=== PATIENT | female | born 1995 | race Caucasian/White ===

== ENCOUNTER 2017-07-27 12:33 | Emergency (ER) | payer OTHER ==
[2017-07-27 12:54] VITALS: BP 105/69
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
--- NOTE | 2017-07-27 14:12 | RAD ---
INDICATION: Left orbit injury. COMPARISON: There are no prior studies available for comparison. TECHNIQUE: Contiguous axial sections of the axial images of the facial bones were obtained and reconstructed in the coronal and sagittal planes. FINDINGS: Soft tissue swelling is noted anterior to the left orbit and maxilla. The casas of the orbits and maxillary sinuses appear intact. The zygomatic arches appear intact. The nasal bones appear intact. There is moderate deviation of the nasal septum toward the left side. The pterygoid plates appear intact. The paranasal sinuses appear clear. IMPRESSION: NO EVIDENCE OF FRACTURE.
== END 2017-07-27 14:37 | disposition home or self-care (01) ==
LOC: UCCORT 12:33
DX: S00.12XA Contusion of left eyelid and periocular area, initial encounter (principal); V78.1XXA Passenger on bus injured in noncollision transport accident in nontraffic accident, initial encounter; Y92.9 Unspecified place or not applicable
CPT/HCPCS: 70486; 84702; 99201; G0463

== ENCOUNTER 2017-08-14 19:52 | Emergency (ER) | payer BC, OTHER ==
[2017-08-14 20:12] VITALS: BP 104/67
--- NOTE | 2017-08-14 20:15 | UC ---
Respiratory Complaint HPI - HPI Summary HPI Summary: 22 yo female with cough x 2 weeks productive no f/c no sob a little low energy no sinus symptoms - History of Current Complaint Chief Complaint: UCGeneralIllness Stated Complaint: COUGH Time Seen by Provider: 08/14/17 20:11 Hx Obtained From: Patient Hx Last Menstrual Period: APPROX 2 WKS AGO Onset/Duration: Gradual Onset, Lasting Weeks Timing: Constant Severity Initially: Mild Severity Currently: Moderate Pain Intensity: 4 Pain Scale Used: 0-10 Numeric Character: Cough: Productive Associated Signs And Symptoms: Positive: Pleuritic Chest Pain - right side - Allergies/Home Medications Allergies/Adverse Reactions: Allergies Allergy/AdvReac Type Severity Reaction Status Date / Time No Known Allergies Allergy Verified 08/14/17 20:04 Home Medications: Home Medications Acetaminophen TAB* [Tylenol TAB*] 4 tab PO Q4H PRN 08/14/17 [History Confirmed 08/14/17] Dextromethorphan-Phenylephrine [Daytime Cold & Flu Relief 10-5-325 mg] 2 cap PO DAILY PRN 08/14/17 [History Confirmed 08/14/17] Levonorgestrel (Iud) [Mirena IUD] 20 mcg IU SEE INSTRUCTIONS 08/14/17 [History Confirmed 08/14/17] PMH/Surg Hx/FS Hx/Imm Hx Previously Healthy: Yes - Surgical History Surgical History: None - Family History Known Family History: Negative: Cardiac Disease, Hypertension, Diabetes - Social History Alcohol Use: Occasionally Substance Use Type: None Smoking Status (MU): Never Smoked Tobacco Review of Systems Constitutional: Negative Skin: Negative Eyes: Negative ENT: Negative Respiratory: Negative Cardiovascular: Chest Pain Gastrointestinal: Negative Genitourinary: Negative Motor: Negative Neurovascular: Negative Musculoskeletal: Negative Neurological: Negative Psychological: Negative Is Patient Immunocompromised?: No All Other Systems Reviewed And Are Negative: Yes Physical Exam Triage Information Reviewed: Yes Appearance: Well-Appearing, No Pain Distress, Well-Nourished Vital Signs: Initial Vital Signs Temp 98.1 F 08/14/17 19:58 Pulse 99 08/14/17 19:58 Resp 18 08/14/17 19:58 BP 104/67 08/14/17 19:58 Pulse Ox 100 08/14/17 19:58 Vital Signs Reviewed: Yes Eyes: Positive: Conjunctiva Clear ENT: Positive: Hearing grossly normal, TMs normal. Negative: Nasal congestion, Nasal drainage, Tonsillar swelling, Tonsillar exudate, Trismus, Muffled/hoarse voice Neck: Positive: Supple, Nontender, No Lymphadenopathy Respiratory: Positive: Chest non-tender, No respiratory distress, No accessory muscle use, Crackles - RLL. Negative: Lungs clear Cardiovascular: Positive: RRR, No Murmur Musculoskeletal: Positive: ROM Intact, No Edema Neurological: Positive: Alert Psychological Exam: Normal Skin Exam: Normal UC Diagnostic Evaluation - Laboratory O2 Sat by Pulse Oximetry: 100 - normal/not hypoxic - Radiology Xray Interpretation: No Acute Changes Radiology Interpretation Completed By: Radiologist Respiratory Course/Dx - Differential Dx/Diagnosis Provider Diagnoses: acute bronchitis Discharge - Discharge Plan Condition: Stable Disposition: HOME Patient Education Materials: Acute Bronchitis (ED)
--- NOTE | 2017-08-14 21:19 | RAD ---
INDICATION: 2 weeks cough. RIGHT lower lobe Rales, RIGHT side chest pain. COMPARISON: No relevant prior exams available on the [facility] PACS for comparison. TECHNIQUE: Dual energy PA and routine lateral views of the chest were obtained. REPORT: Clear lungs and pleural spaces. Negative for pneumothorax. The heart, pulmonary vasculature, and mediastinal contours are unremarkable. Unremarkable osseous structures and soft tissue contours. IMPRESSION: No evidence for pneumonia. Negative exam.
[2017-08-14] MEDS ORDERED: Amoxicillin PO (*) 250 MG CAP PO ONE (21:22)
[2017-08-14] MEDS ORDERED: Amoxicillin PO (*) 500 MG CAP PO ONE (21:23)
[2017-08-14] MEDS ORDERED: Ibuprofen TAB* 600 MG PO ONE (21:24)
== END 2017-08-14 21:34 | disposition home or self-care (01) ==
LOC: UCCORT 19:52
DX: J20.9 Acute bronchitis, unspecified (principal)
CPT/HCPCS: 71020; 99212; A9270-GY; G0463